=== PATIENT | female | born 1985 | race Caucasian/White ===

== ENCOUNTER 2016-09-10 08:42 | Day surgery (SDC) | payer OTHER ==
[2016-09-10 09:33] LABS: PROTHROMBIN TIME 12.3 SEC (11.4-15.4)
[2016-09-10 09:34] LABS: PARTIAL THROMBOPLASTIN TIME 28.6 SEC (23.5-35.8)
[2016-09-10 09:35] LABS: HEMATOCRIT 45.4 % (36.0-47.0); HGB HCT DIFFERENCE -0.4; MEAN CORPUSCULAR HEMOGLOBIN 29.9 pg (27.0-33.4); MEAN CORPUSCULAR HGB CONC 33.1 g/dL (32.0-36.0); MEAN CORPUSCULAR VOLUME 90 fl (80-97); RED BLOOD COUNT 5.03 10^6/uL (3.72-5.28)
[2016-09-10 09:46] LABS: BLOOD UREA NITROGEN 7 mg/dL (7-20); CREATININE RESULT 0.62 mg/dL (0.52-1.25)
[2016-09-10] MEDS ORDERED: FENTANYL CITRATE INJ/PF 100 MCG/2 ML AMPUL ONE (11:34)
[2016-09-10] MEDS ORDERED: MIDAZOLAM 2 MG/2 ML INJ ONE (11:34)
[2016-09-10 13:05] VITALS: BP 128/82
--- NOTE | 2016-09-10 14:02 | RADIOLOGY REPORT (SQ) ---
EXAM DESCRIPTION: CT ABDOMEN NO ORAL OR IV; CT NEEDLE PLACEMENT COMPLETED DATE/TIME: 09/10/2016 12:02 pm REASON FOR STUDY: LIVER MASS; LIVER MASS, LIVER BIOPSY R94.5 ABNORMAL RESULTS OF LIVER FUNCTION DANIEL DIES COMPARISON: Outside studies from [facility] TECHNIQUE: Outside imaging was performed. A less than 2 cm lesion is present in the left lobe liver . After obtaining informed consent, the patient was brought to the CT suite and was placed supine on th e CT gurney. The patient was prepped and draped in the usual sterile fashion . Axial images were obt ained for targeting of thesmall nodule in the left lobe liver. An appropriate access site was selecte d. IV sedation was administered and physician direction by the registered nurse using 1 milligrams of Versed and 50 micrograms of fentanyl. Physiologic monitoring was provided before, during, and after sedation. The total sedation time was 30 minutes. Documentation face to face time, the performing proceduralist, spent monitoring the patient: 10minute s. Noncontrasted CT of the liver was performed to localize an approach for the small nodule in the left lobe liver biopsy. A percutaneous site was marked. Time out was performed. After sedation, the patient's respirations became more shallow. On end expiration, we were unable to adequately visualize the left lobe liver lesion because of streak artifact from the patient's [place] g[place] rods in the spine. No CT-guided biopsy was performed today. Total of 5.[address] fluoro was used. All CT scanners at this facility use dose modulation, iterative reconstruction, and/or weight based d osing when appropriate to reduce radiation dose to as low as reasonably achievable (ALARA). [facility]: Dose Right [facility]: CareDose [facility]: Dose Right [facility]: Teradose 4D [facility]: Smart CoreXchange RADIATION DOSE: Up-to-date CT equipment and radiation dose reduction techniques were employed. CTDIv ol: 4.0 - 17.3 mGy. DLP: 838 mGy-cm. mGy. LIMITATIONS: None. FINDINGS: Unable to perform left lobe liver nodule biopsy. Lesion is not well seen on the CT fluoro , particularly after conscious sedation, where shallower respirations placed the lesion in the same f ield of view as Davis hema spinal hardware. IMPRESSION: No CT-guided biopsy was performed today. COMMENT: Patient medication list reviewed:Yes- Quality ID# [id number]:Eligible professional attests to docu menting in the medical record they obtained, updated, or reviewed the patient's current medications.. Quality ID 145: Final reports for procedures using fluoroscopy that document radiation exposure loree savita, or exposure time and number of fluorographic images (if radiation exposure indices are not avail able) TECHNICAL DOCUMENTATION: JOB ID: [id number] Quality ID # [id number]: Final reports with documentation of one or more dose reduction techniques (e.g., A utomated exposure control, adjustment of the mA and/or kV according to patient size, use of iterative reconstruction technique) 2010 [employer]- All Rights Reserved
== END 2016-09-10 13:05 | disposition home or self-care (01) ==
LOC: RAD 08:42
PROVIDERS: ATTEND Family Medicine
DX: R94.5 Abnormal results of liver function studies (principal); Z53.9 Procedure and treatment not carried out, unspecified reason; F17.210 Nicotine dependence, cigarettes, uncomplicated; I10 Essential (primary) hypertension; Z79.899 Other long term (current) drug therapy
CPT/HCPCS: 36415; 84520; 82565; 85027; 85610; 85730; 74150; 77012; J2250; J3010